=== PATIENT | female | born 1970 | race Caucasian/White ===

== ENCOUNTER 2019-09-07 09:30 | Emergency (ER) | payer OTHER ==
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
--- NOTE | 2019-09-07 10:15 | CT SCAN REPORT ---
EXAMINATION: CT Head without IV Contrast EXAM DATE: 09/07/2019 10:06 AM TECHNIQUE: Standard protocol CT images of the head were obtained without intravenous contrast. Simon l and sagittal reconstructed images were created. INDICATION: fall, persistent PEÑA, nausea, dizziness COMPARISON: CT brain images 03/16/2014 (report not currently available). HAND DOMINANCE: Unknown. ENCOUNTER: Not applicable FINDINGS: No acute intracranial hemorrhage or depressed calvarial fracture. No focal edema evident. No mass, hydrocephalus or acute cortical infarct. Probable retention cyst left maxillary sinus. IMPRESSION: No acute intracranial hemorrhage. Dictated by: Laureano Kelley MD on 09/07/2019 10:07 AM. .
--- NOTE | 2019-09-07 10:26 | CT SCAN REPORT ---
EXAMINATION: CT Cervical Spine without IV Contrast EXAM DATE: 09/07/2019 10:06 AM TECHNIQUE: Standard protocol cervical spine CT imaging was performed without intravenous contrast. Co tonia and sagittal images were reconstructed. INDICATION: fall, persistent PEÑA, nausea, dizziness COMPARISON: Cervical spine MRI 08/19/2015 ENCOUNTER: Not applicable FINDINGS: C5-C6 anterior fixation appears intact. Severe right C3-C4 facet arthrosis with resulting severe neur al foraminal stenosis. No spinal canal stenosis. Mild straightening of the normal cervical lordosis. There is otherwise normal cervical alignment, cur vature, vertebral body height, and disc height. Paraspinal soft tissues are unremarkable. IMPRESSION: Straightening of the cervical lordosis which may relate to patient positioning or muscle spasm. Intact anterior fixation at C5-C6. Right C3-C4 facet arthrosis with severe right neural foraminal stenosis. Dictated by: Gerry Yeung MD on 09/07/2019 10:22 AM. .
== END 2019-09-07 10:37 | disposition home or self-care (01) ==
LOC: ER 09:30
DX: S06.0X0A Concussion without loss of consciousness, initial encounter (principal); R51 Headache; R11.2 Nausea with vomiting, unspecified; R42 Dizziness and giddiness; W07.XXXA Fall from chair, initial encounter; Y92.000 Kitchen of unspecified non-institutional (private) residence as the place of occurrence of the external cause
CPT/HCPCS: 70450; 72125; 99284